=== PATIENT | male | born 1945 | race Caucasian/White ===

== ENCOUNTER 2021-02-19 06:35 | Observation (INO) ==
[2021-02-19] MEDS ORDERED: OPTIRAY 320 125ml IV ONE (06:54)
--- NOTE | 2021-02-19 06:55 | Emergency Department Note ---
History of Present Illness General Chief complaint: Stroke/CVA Symptoms Stated complaint: STROKE SYS Time Seen by Provider: 02/19/21 06:50 Source: patient and family History of Present Illness Provider complaint: Right-sided weakness Onset (ago): hour(s) Location: upper extremity and right Radiation: non-radiation Severity: severe Pain Consistency: + now resolved Quality: + other (Could not left arm) Relieved By: + none Associated symptoms: + weakness; no chest pain, no cough, no fever/chills, no headaches, no nausea/vomiting or no shortness of breath This is a 75-year-old male who weighed 6 up today at 5:30 AM with strokelike symptoms. He states that his right arm was resting on his abdomen and he could not lift it. He states he went to bed midnight and he had no symptoms. His also notes that he had slurring of the speech. He states that he had difficulty finding words as well. He states that his symptoms are significantly improving at this time. He had no symptoms in his legs. He denies any headache, fever, head trauma, vomiting, chest pain, shortness of breath, cough or cold symptoms, abdominal pain, diarrhea or urinary symptoms. He has never had a stroke before. His gave him 2 baby aspirin prior to arrival. He has a history of high blood pressure but no other medical problems. His symptoms are significantly improved but he still has some difficulty with strength in the right arm as well as some slurred speech according to his . Home Medications Medication Instructions Recorded Confirmed Type aspirin 81 mg tablet,delayed 162 mg PO ONCE 02/19/21 02/19/21 History release atenolol 25 mg tablet 12.5 mg PO HS 02/19/21 02/19/21 History doxazosin 1 mg tablet (Cardura) 0.5 mg PO HS 02/19/21 02/19/21 History terbinafine HCl 250 mg tablet 250 mg PO QDD 02/19/21 02/19/21 History Allergies Allergy/AdvReac Type Severity Reaction Status Date / Time No Known Drug Allergies Allergy Unknown . Verified 07/14/15 09:56 Past Med/Surg History Medical History (Updated 02/19/21 @ 09:30 by Amador Alonzo) Asymptomatic LV dysfunction follows with cardiology in [place], [place]; etiology? BPH (benign prostatic hyperplasia) Hypertension TIA (transient ischemic attack) ~2008 Surgical History (Updated 02/19/21 @ 08:46 by Amador Alonzo) H/O left knee surgery arthroscopy H/O shoulder surgery right Family History (Updated 02/19/21 @ 08:48 by Amador Alonzo) Uncle Stroke paternal Mother Dementia CHF (congestive heart failure) Father Prostate cancer with mets Social History (Updated 02/19/21 @ 08:50 by Amador Alonzo) Smoking Status: Former smoker packs per day: 2; Years Smoked: 15; Smoking End Date: 1979; Hx Alcohol Use: No Preferred Language: Faroese marital status: Current Living Situation: Spouse Current Living Situation Comment: lives with in [place], [place] current occupational status: retired current occupation: worked in [employer] in [employer] Feels Safe at Home: Yes Review of Systems See HPI for pertinent positives & negatives. and A total of 10 systems reviewed and were otherwise negative Physical Exam Vital Signs Vital Signs - 24 hr 02/19/21 06:38 02/19/21 07:30 02/19/21 08:00 Temperature 36.3 C L Temperature Source Temporal Artery Scan Pulse Rate 58 L 60 58 L Pulse Rate from SpO2 Sensor 59 L Respiratory Rate 18 18 14 Respiratory Effort / Characteristics Non-Labored Respiratory Depth Normal Respiratory Pattern Regular Blood Pressure 158/96 H 142/91 H 137/86 Blood Pressure Mean 116 108 103 Pulse Oximetry 96 95 93 Oxygen Delivery Method Room Air Sepsis Recent Fever Within 48 Hours No Sepsis New/Unexplained Change in Mental Status No Sepsis Action Taken by Nursing No Action Required 02/19/21 09:01 Temperature Temperature Source Pulse Rate 59 L Pulse Rate from SpO2 Sensor 60 Respiratory Rate 13 Respiratory Effort / Characteristics Respiratory Depth Respiratory Pattern Blood Pressure 127/82 Blood Pressure Mean 97 Pulse Oximetry 95 Oxygen Delivery Method Sepsis Recent Fever Within 48 Hours Sepsis New/Unexplained Change in Mental Status Sepsis Action Taken by Nursing Constitutional: Vital signs reviewed. Eyes: Pupils are equal round reactive to light. Conjunctiva are noninjected. ENT: Pharynx is clear without erythema or exudate. Mucous membranes are moist. Neck supple without meningeal signs. Respiratory: Clear to auscultation bilaterally. Breath sounds are equal bilaterally. Cardiovascular: Regular rate and rhythm. No rubs or gallops. GI: Soft, nondistended and nontender. Bowel sounds are present. Musculoskeletal: No peripheral edema. No lower extremity tenderness. Integumentary: No cyanosis. or jaundice. Neurologic: The patient is awake and alert. Cranial nerves II-XII are intact. Motor is 5 out of 5 all extremities, except the right upper extremity which demonstrates some mild weakness compared to the left. Sensation is intact to light touch all extremities. Normal speech. No pronator drift. No limb ataxia. Psychiatric: Normal affect. Not anxious appearing. Course Administered Medications Discontinued Medications Aspirin (Aspirin 81 Mg Chew) 162 mg PO NOW STA Stop: 02/19/21 07:26 Last Admin: 02/19/21 08:01 Dose: 162 mg Documented by: [id number] Magnesium Sulfate/Dextrose (Magnesium Sulfate / D5w) 1 gm in 100 mls @ 100 mls/hr IV NOW STA Stop: 02/19/21 09:10 Last Infusion: 02/19/21 09:25 Dose: 0 mls/hr Documented by: [id number] Admin: 02/19/21 08:25 Dose: 100 mls/hr Documented by: [id number] Ioversol (Optiray 320 125ml) 120 ml IV ONCE ONE Stop: 02/19/21 06:55 Last Admin: 02/19/21 06:54 Dose: 120 ml Documented by: [id number] Medical Decision Making Differential Diagnosis TIA, CVA, intracranial mass, intracranial hemorrhage, metabolic derangement Medical Records Attestation: I reviewed the patient's medical records. I did perform a limited focused review of portions of the patient's old chart on the electronic medical record. The patient has had no prior visits to this hospital. Home Medications Current Medication List: was personally reviewed by me Laboratory Data Attestation: I reviewed the patient's lab results. Result diagrams: 02/19/21 06:45 02/19/21 06:45 Lab Results 02/19/21 02/19/21 02/19/21 Range/Units 06:45 06:45 06:45 WBC 5.72 (4.8-10.8) K/uL RBC 4.35 L (4.7-6.1) M/uL Hgb 12.2 L (14.0-18.0) g/dL Hct 37.2 L (42-52) % MCV 85.5 (80-100) fL MCH 28.0 (25-34) pg MCHC 32.8 (32-36) g/dL RDW Std Deviation 46.3 (36.4-46.3) fL RDW Coeff of Manda 14.9 H (11.5-14.5) % Plt Count 210 (130-400) K/uL MPV 10.3 (7.4-10.4) fL Immature Gran % (Auto) 0.2 % Neut % (Auto) 45.1 % Lymph % (Auto) 39.9 % [place] % (Auto) 11.2 % Eos % (Auto) 3.3 % Baso % (Auto) 0.3 % Neut # (Auto) 2.58 (1.4-6.5) K/uL Lymph # (Auto) 2.28 (1.2-3.4) K/uL [place] # (Auto) 0.64 H (0.11-0.59) K/uL Eos # (Auto) 0.19 (0-0.5) K/uL Baso # (Auto) 0.02 (0-0.2) K/uL Immature Gran # (Auto) 0.01 (0.00-0.02) K/uL PT 9.9 (9.0-12.0) Seconds INR 1.0 (0.9-1.1) APTT 24.3 (21.0-31.0) Seconds PTT Ratio 0.9 Sodium 141 (136-145) mmol/L Potassium 4.1 (3.5-5.1) mmol/L Chloride 110 H (98-107) mmol/L Carbon Dioxide 27 (21-32) mmol/L Anion Gap 4.0 (3-11) BUN 17 (7-18) mg/dl Creatinine 0.94 (0.6-1.4) mg/dl Est Cr Clr Drug Dosing 83.0 ml/min Est GFR ( Amer) 92.9 ml/min Est GFR (Non-Af Amer) 80.1 ml/min BUN/Creatinine Ratio 17.7 (10-20) Glucose 87 (70-99) mg/dl Calcium 8.5 (8.5-10.1) mg/dl Magnesium 1.7 L (1.8-2.4) mg/dl Total Bilirubin 0.5 (0.2-1) mg/dl AST 34 (15-37) U/L ALT 42 (12-78) U/L Alkaline Phosphatase 58 (45-117) U/L Troponin I < 0.015 (0-0.045) ng/ml Total Protein 7.3 (6.4-8.2) gm/dl Albumin 3.7 (3.4-5.0) gm/dl Globulin 3.6 (2.5-4.0) gm/dl Albumin/Globulin Ratio 1.0 (0.9-2) COVID-19 Eval Order SARS-CoV-2 (PCR) (Negative) Blood Type Antibody Screen 02/19/21 02/19/21 02/19/21 Range/Units 07:03 07:30 07:30 WBC (4.8-10.8) K/uL RBC (4.7-6.1) M/uL Hgb (14.0-18.0) g/dL Hct (42-52) % MCV (80-100) fL MCH (25-34) pg MCHC (32-36) g/dL RDW Std Deviation (36.4-46.3) fL RDW Coeff of Manda (11.5-14.5) % Plt Count (130-400) K/uL MPV (7.4-10.4) fL Immature Gran % (Auto) % Neut % (Auto) % Lymph % (Auto) % [place] % (Auto) % Eos % (Auto) % Baso % (Auto) % Neut # (Auto) (1.4-6.5) K/uL Lymph # (Auto) (1.2-3.4) K/uL [place] # (Auto) (0.11-0.59) K/uL Eos # (Auto) (0-0.5) K/uL Baso # (Auto) (0-0.2) K/uL Immature Gran # (Auto) (0.00-0.02) K/uL PT (9.0-12.0) Seconds INR (0.9-1.1) APTT (21.0-31.0) Seconds PTT Ratio Sodium (136-145) mmol/L Potassium (3.5-5.1) mmol/L Chloride (98-107) mmol/L Carbon Dioxide (21-32) mmol/L Anion Gap (3-11) BUN (7-18) mg/dl Creatinine (0.6-1.4) mg/dl Est Cr Clr Drug Dosing ml/min Est GFR ( Amer) ml/min Est GFR (Non-Af Amer) ml/min BUN/Creatinine Ratio (10-20) Glucose (70-99) mg/dl Calcium (8.5-10.1) mg/dl Magnesium (1.8-2.4) mg/dl Total Bilirubin (0.2-1) mg/dl AST (15-37) U/L ALT (12-78) U/L Alkaline Phosphatase (45-117) U/L Troponin I (0-0.045) ng/ml Total Protein (6.4-8.2) gm/dl Albumin (3.4-5.0) gm/dl Globulin (2.5-4.0) gm/dl Albumin/Globulin Ratio (0.9-2) COVID-19 Eval Order Covid19 at [facility] SARS-CoV-2 (PCR) NEGATIVE (Negative) Blood Type AB Positive Antibody Screen NEGATIVE Imaging Data Radiologist's Impression: Head CT 02/19/21 06:50 CT head/brain wo con CLINICAL HISTORY: right weakness slurred speech COMPARISON STUDY: No previous studies for comparison. TECHNIQUE: Axial CT of the brain is performed from the vertex to the skull base. IV contrast was not administered for this examination. A dose lowering technique was utilized adhering to the principles of ALARA. CT DOSE: FINDINGS: No intra or extra-axial mass lesions are visualized. There is no CT evidence of acute cortical infarction. There is no evidence of midline shift. There is no acute hemorrhage. No acute depressed calvarial fractures are visualized. There are patchy white matter hypodensities likely on a small vessel basis. Lacunar infarct is seen within the right cerebellar lobe. There is no evidence of pathologic ventricular dilatation. There is no evidence of acute sinusitis. Subcutaneous hypoattenuating prominence of the left frontal scalp likely represents lipoma. IMPRESSION: 1. No acute intracranial hemorrhage, no midline shift or space occupying lesions. 2. Chronic small vessel ischemia. Lacunar infarct within the right cerebellar lobe. ACT 112: Negative or not required by law. The above report was generated using voice recognition software. It may contain grammatical, syntax or spelling errors. Electronically signed by: Any Hugo DO 02/19/2021 7:11 AM Head CTA 02/19/21 06:50 CT angio head w con CLINICAL HISTORY: Stroke Like Symptoms TECHNIQUE: CT angiography of the head was performed in a dynamic helical fashion during intravenous administration of 120 cc of Optiray. MIP imaging was performed. A dose lowering technique was utilized adhering to the principles of ALARA. CT DOSE: 1246.92 mGy.cm COMPARISON STUDY: No previous studies for comparison. FINDINGS: Distal aspect of right and left internal carotid arteries are normally opacified. Bilateral anterior cerebral arteries and anterior communicating arteries are normally opacified. V4 segment of the right vertebral artery is diffusely narrowed. 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 Right and left posterior cerebral artery are normally opacified. Hypoplastic left posterior communicating artery is seen likely representing developmental variant. No evidence of focal occlusion, aneurysmal dilatation or dissection is seen. IMPRESSION: 1. No evidence of focal occlusion, aneurysmal dilatation or dissection. 2. Diffuse narrowing of the V4 segment of the right vertebral artery which most likely represent developmental variant. 3. Fenestration of the basilar artery, developmental variant. ACT 112: Negative or not required by law. The above report was generated using voice recognition software. It may contain grammatical, syntax or spelling errors. Electronically signed by: Any Hugo DO 02/19/2021 7:19 AM Neck CTA 02/19/21 06:50 NECK CTA HISTORY: Right-sided weakness. Slurred speech. Stroke Like Symptoms TECHNIQUE: Multiaxial CT images of the neck were performed following the intravenous administration of contrast to evaluate the major cervical vessels. Maximum intensity projection images were also obtained. All measurements were calculated based on NASCET criteria. A dose lowering technique was utilized adhering to the principles of ALARA. COMPARISON STUDY: None. FINDINGS: The aortic arch and proximal great vessels are widely patent. There i s no significant stenosis, occlusion, or dissection identified within the bilateral common carotid, internal carotid, or vertebral arteries. Hypoplastic right vertebral artery. IMPRESSION: No significant stenosis, occlusion, or dissection identified within the carotid or vertebral arteries. ACT 112: Negative or not required by law. Electronically signed by: Oneil Tom M.D. 02/19/2021 7:17 AM ECG Data Attestation: I personally reviewed and interpreted this ECG as follows: Indication: + other (Stroke symptoms) Rhythm: + normal sinus ECG [place]: + Normal ECG ST segments: + Nonspecific ST abnormalities ECG Findings: no PVCs Comparison ECG Date: no prior available MDM Narrative I did evaluate the patient as noted above. Patient is presenting with right- sided paresis of the upper extremities starting at 5:30 AM this morning. He woke up with symptoms and his last known well was midnight. He is therefore not an IV TPA candidate. His symptoms are also improving significantly and he has minimal weakness on the right side. His also noted slurring of his speech which is significantly improved and he also complained of word finding difficulty. He currently has no signs of slurring of speech or aphasia but his states his speech is not completely normal. I did call a stroke alert. I did discuss case with Dr. Leija at [facility] stroke neurology. He agreed that IV TPA was not indicated. IV access was established. I did place an order for continuous cardiac monitoring. The monitor showed normal sinus rhythm at a rate of 60 bpm. I did order and personally review the patient's 12-lead EKG as described above. He has some nonspecific changes on twelve-lead EKG with sinus bradycardia. No old EKGs available. He denies having any chest discomfort or shortness of breath or symptoms consistent with ACS. I did order and review the patient's blood work as noted in the electronic medical record. He has a mild anemia with a hemoglobin 12.2. Platelets and WBC count are unremarkable. Electrolytes and LFTs and troponin are also unremarkable other than a magnesium of 1.7. I did order a CT of the head and CT angiogram of the head neck. I did review the images myself as well as the radiology report as described above. He has no evidence of acute stroke or acute intracranial findings. Angiogram is unremarkable other than developmental anomalies. I did reassess the patient. He still feels a little weakness in the right arm. His did give him 2 baby aspirin prior to arrival. I did treat him with another 2 baby aspirin here. I did recommend hospitalization for further care evaluation and MRI of the brain. I did discuss case with the hospitalist and embedded case manager. Impression & Plan Acute cerebrovascular accident (CVA), Right arm weakness Discharge Plan Visit Data Chief Complaint: Stroke/CVA Symptoms Stated Complaint: STROKE SYS ED Provider: David Pelayo Discharge Problem: Acute cerebrovascular accident (CVA), Right arm weakness Patient Disposition: Being Evaluated by Hospitalist
[2021-02-19 07:04] LABS: Basophils # (auto) 0.02 K/uL (0-0.2); Basophils % (auto) 0.3 %; Eosinophils # (auto) 0.19 K/uL (0-0.5); Eosinophils % (auto) 3.3 %; Hematocrit (blood only) 37.2 % (42-52); Hemoglobin 12.2 g/dL (14.0-18.0); Immature Granulocytes # (auto) 0.01 K/uL (0.00-0.02); Immature Granulocytes % (auto) 0.2 %; Lymphocytes # (auto) 2.28 K/uL (1.2-3.4); Lymphocytes % (auto) 39.9 %; Mean Corpuscular Hgb Conc 32.8 g/dL (32-36); Mean Corpuscular Volume 85.5 fL (80-100); Mean Platelet Volume 10.3 fL (7.4-10.4); Monocytes # (auto) 0.64 K/uL (0.11-0.59); Monocytes % (auto) 11.2 %; Neutrophils # (auto) 2.58 K/uL (1.4-6.5); Neutrophils % (auto) 45.1 %; Platelet Count 210 K/uL (130-400); RDW Coefficient of Variation 14.9 % (11.5-14.5); RDW Standard Deviation 46.3 fL (36.4-46.3); Red Blood Count 4.35 M/uL (4.7-6.1); White Blood Count 5.72 K/uL (4.8-10.8)
--- NOTE | 2021-02-19 07:12 | CT Scan Report ---
CT head/brain wo con CLINICAL HISTORY: right weakness slurred speech COMPARISON STUDY: No previous studies for comparison. TECHNIQUE: Axial CT of the brain is performed from the vertex to the skull base. IV contrast was not administered for this examination. A dose lowering technique was utilized adhering to the principles of ALARA. CT DOSE: FINDINGS: No intra or extra-axial mass lesions are visualized. There is no CT evidence of acute cortical infarc tion. There is no evidence of midline shift. There is no acute hemorrhage. No acute depressed calvar ial fractures are visualized. There are patchy white matter hypodensities likely on a small vessel basis. Lacunar infarct is seen within the right cerebellar lobe. There is no evidence of pathologic ventricular dilatation. There is no evidence of acute sinusitis. Subcutaneous hypoattenuating prominence of the left frontal scalp likely represents lipoma. IMPRESSION: 1. No acute intracranial hemorrhage, no midline shift or space occupying lesions. 2. Chronic small vessel ischemia. Lacunar infarct within the right cerebellar lobe. ACT 112: Negative or not required by law. The above report was generated using voice recognition software. It may contain grammatical, syntax o r spelling errors. Electronically signed by: Any Hugo DO 02/19/2021 7:11 AM
--- NOTE | 2021-02-19 07:18 | CT Scan Report ---
NECK CTA HISTORY: Right-sided weakness. Slurred speech. Stroke Like Symptoms TECHNIQUE: Multiaxial CT images of the neck were performed following the intravenous administration o f contrast to evaluate the major cervical vessels. Maximum intensity projection images were also obta ined. All measurements were calculated based on NASCET criteria. A dose lowering technique was utili zed adhering to the principles of ALARA. COMPARISON STUDY: None. FINDINGS: The aortic arch and proximal great vessels are widely patent. There is no significant sten osis, occlusion, or dissection identified within the bilateral common carotid, internal carotid, or v ertebral arteries. Hypoplastic right vertebral artery. IMPRESSION: No significant stenosis, occlusion, or dissection identified within the carotid or vertebral arteries . ACT 112: Negative or not required by law. Electronically signed by: Oneil Tom M.D. 02/19/2021 7:17 AM
--- NOTE | 2021-02-19 07:20 | CT Scan Report ---
CT angio head w con CLINICAL HISTORY: Stroke Like Symptoms TECHNIQUE: CT angiography of the head was performed in a dynamic helical fashion during intravenous a dministration of 120 cc of Optiray. MIP imaging was performed. A dose lowering technique was utilized adhering to the principles of ALARA. CT DOSE: 1246.92 mGy.cm COMPARISON STUDY: No previous studies for comparison. FINDINGS: Distal aspect of right and left internal carotid arteries are normally opacified. Bilateral anterior cerebral arteries and anterior communicating arteries are normally opacified. V4 segment of the right vertebral artery is diffusely narrowed. 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 Right and left posterior cerebral artery are normally opacified. Hypoplastic left posterior communica ting artery is seen likely representing developmental variant. No evidence of focal occlusion, aneurysmal dilatation or dissection is seen. IMPRESSION: 1. No evidence of focal occlusion, aneurysmal dilatation or dissection. 2. Diffuse narrowing of the V4 segment of the right vertebral artery which most likely represent dev elopmental variant. 3. Fenestration of the basilar artery, developmental variant. ACT 112: Negative or not required by law. The above report was generated using voice recognition software. It may contain grammatical, syntax o r spelling errors. Electronically signed by: Any Hugo DO 02/19/2021 7:19 AM
[2021-02-19 07:22] LABS: Alanine Aminotransferase 42 U/L (12-78); Albumin Level 3.7 gm/dl (3.4-5.0); Aspartate Aminotransferase 34 U/L (15-37); BUN Creatinine Ratio 17.7 (10-20); Blood Urea Nitrogen 17 mg/dl (7-18); Calcium 8.5 mg/dl (8.5-10.1); Carbon Dioxide 27 mmol/L (21-32); Chloride 110 mmol/L (98-107); Est GFR (African American) 92.9 ml/min; Est GFR (Non-African American) 80.1 ml/min; Glucose 87 mg/dl (70-99); Magnesium 1.7 mg/dl (1.8-2.4); Potassium 4.1 mmol/L (3.5-5.1); Sodium 141 mmol/L (136-145)
[2021-02-19] MEDS ORDERED: ASPIRIN 81 MG CHEW PO STA (07:25)
[2021-02-19 07:26] LABS: Alkaline Phosphatase 58 U/L (45-117); Bilirubin,Total 0.5 mg/dl (0.2-1); Globulin 3.6 gm/dl (2.5-4.0); Total Protein 7.3 gm/dl (6.4-8.2); Troponin I < 0.015 ng/ml (0-0.045)
[2021-02-19 07:27] LABS: Partial Thromboplastin Ratio 0.9; Partial Thromboplastin Time 24.3 Seconds (21.0-31.0); Prothrombin Time 9.9 Seconds (9.0-12.0)
[2021-02-19] MEDS ORDERED: MAGNESIUM SULFATE / D5W 1 GM/100 ML BAG IV STA (08:11)
--- NOTE | 2021-02-19 08:12 | History & Physical Report ---
Date of Service February 19, 2021 Assessment & Plan (1) Right arm weakness: Plan: Dysarthria, right arm weakness, and minimal right leg weakness at presentation. At minimum is a TIA event. Cannot rule out stroke event. Either way patient's symptoms are already improving and motor exam is near- normal during my admission assessment. Risk factors for TIA or stroke event -- prior TIA, HTN, and CT head does show a chronic lacunar infarct in the right cerebellum (perhaps that was actually his TIA event 13 years ago?). See #2 below. (2) TIA (transient ischemic attack): Plan: Presentation c/w with TIA vs stroke. Location - left brainstem? Will admit to telemetry, perform MRI brain, obtain echo, continue aspirin 81mg daily for secondary prevention, dysphagia screen, PT/OT/speech, and neuro consultation. Check lipids and HbA1C in am. (3) BPH (benign prostatic hyperplasia): Plan: Hold alpha anne-marie in order to allow permissiveness in blood pressures. No LUTS at this time. (4) Asymptomatic LV dysfunction: Plan: Follows with a medicare specialist in [place]. At one point his EF was ~40-50. Apparently his LV function has recovered but patient is uncertain of current EF. Vjya-gid-amrh check echo. He has no signs of CHF at this time. (5) Hypertension: Plan: Hold doxazosin. Hold atenolol. (6) Hypomagnesemia: Plan: Mag sulfate 1gm IV x 1. Repeat mag level am. (7) Anemia: Plan: Hb 12 at presentation today. MCV 85. Check iron studies, B12, and folate in am. Check fecal occult blood. Will need f/u for this post-d/c. (8) DVT prophylaxis: Plan: add lovenox 40mg daily Plan: extensively updated at bedside place in observation status History of Present Illness Chief Complaint: right arm weakness, slurred speech Primary Care Provider: NATTY PERRY 75yo male with HTN who presents with slurred speech and right arm weakness/flaccidness starting 0530 when he awoke from sleep. Right leg felt "rubbery" but was able to ambulate. gave him 2 baby aspirins for total of 162mg. He typically does not take aspirin. On the way to the hospital his speech was still slurred. Throughout his ER visit the speech started to improve, perhaps an hour after arrival. Right arm weakness has improved during the ER stay, but not back to 100% baseline. In the ER he walked to the bathroom once and right leg felt ok. No dysphagia (took a few sips of water without difficulty). No left-sided weakness. No vertigo. No visual change. No ataxia. Had TIA event 13 years ago. He was traveling at that time and felt "wobbly"/"I couldn't get my direction." He felt like he was going to fall. Took aspirin and went back to bed. When he awoke in the am the next day his symptoms had resolved. He had w/u for the TIA event about 1 week following the symptoms - nothing was found. He did not take anti-platelet agents following that event. [facility] and have been in [facility] since 2 days ago. No h/o COVID illness. Has had COVID vaccination. Allergies Allergy/AdvReac Type Severity Reaction Status Date / Time No Known Drug Allergies Allergy Unknown . Verified 07/14/15 09:56 Home Medications Medication Instructions Recorded Confirmed Type aspirin 81 mg tablet,delayed 162 mg PO ONCE 02/19/21 02/19/21 History release atenolol 25 mg tablet 12.5 mg PO HS 02/19/21 02/19/21 History doxazosin 1 mg tablet (Cardura) 0.5 mg PO HS 02/19/21 02/19/21 History terbinafine HCl 250 mg tablet 250 mg PO QDD 02/19/21 02/19/21 History Past Med/Surg History Medical History (Updated 02/19/21 @ 09:30 by Amador Alonzo) Asymptomatic LV dysfunction follows with cardiology in [place], [place]; etiology? BPH (benign prostatic hyperplasia) Hypertension TIA (transient ischemic attack) ~2008 Surgical History (Updated 02/19/21 @ 08:46 by Amador Alonzo) H/O left knee surgery arthroscopy H/O shoulder surgery right Family History (Updated 02/19/21 @ 08:48 by Amador Alonzo) Uncle Stroke paternal Mother Dementia CHF (congestive heart failure) Father Prostate cancer with mets Social History (Updated 02/19/21 @ 08:50 by Amador Alonzo) Smoking Status: Never smoker packs per day: 2; Years Smoked: 15; Smoking End Date: 1979; Second Hand Exposure: No; Do You Dip or Chew Tobacco: No; Tobacco Cessation Education Requested by Patient: No Hx Alcohol Use: No Hx Substance Use: No Preferred Language: Romanian Communication Ability: Effective Roll Cleaner Required: No Beliefs That Will Affect Care: None marital status: Current Living Situation: Spouse Current Living Situation Comment: lives with in [place], [place] current occupational status: retired current occupation: worked in [employer] in [employer] Other Information That Helps Us Care for You: No Feels Safe at Home: Yes Safety Concerns: Feels Safe At This Time Assistive Devices: None Review of Systems Constitutional: no fever, no chills, no fatigue, no anorexia and no weight loss Eyes: no worsening vision Ear, Nose, Mouth, Throat: no nasal congestion, no sore throat and no dysphagia Respiratory: no cough, no dyspnea and no dyspnea on exertion Cardiovascular: no chest pain, no palpitations and no edema Gastrointestinal: + abdominal pain (2 days ago - around umbilicus; pressure sensation; eating did not make worse; now resolved); no nausea, no vomiting, no diarrhea/loose stools and no blood in stools Genitourinary: no dysuria or no difficulty urinating Musculoskeletal: no joint pain Integumentary: no rash Neurologic: as per Subjective / HPI and + localized weakness; no gait abnormality and no headache(s) Psychiatric: no depression Endocrine: no diabetes Hematologic / Lymphatic: no easy bleeding and no easy bruising Physical Exam Constitutional: well developed and well nourished; no acute distress and no altered mental status Eyes: normal visual clark by confrontation, PERRL and EOM intact bilaterally ENMT: external ear and nose normal, oropharynx normal Ears: no TM abnormality Neck: trachea midline, no thyromegaly Respiratory: normal respiratory effort, lungs clear to auscultation Cardiovascular: Rate/Rhythm: regular rate (with extra beats) and regular rhythm Heart Sounds: normal S1 and normal S2; no murmur Vessels: posterior tibial pulses present and dorsalis pedis pulses present; no JVD Extremities: no edema Gastrointestinal (Abdomen): normal bowel sounds, soft, nontender, no hepatosplenomegaly (small lipoma LUQ?? - freely movable ) Musculoskeletal: Extremities: no clubbing Skin: no rashes, warm and dry Neurologic: CN 3-12 intact except ? scant right lower facial droop; no pronator drift; negative babinski's; sensory intact to light touch x 4 exts; no ataxia finger/nose/finger maneuver; DTRs 2+ b/l upper /lower extremities. strength - 4-5/5 strength RUE, all other limbs 5/5. speech fluent/clear; gait not tested. Psychiatric: A+Ox3, euthymic affect Lymphatic: no cervical lymphadenopathy Results & Data Results & Data ([facility]) Vital Signs (Past 12 Hours) Vital Signs Temp Pulse Resp BP Pulse Ox 02/19/21 07:30 60 18 142/91 H 95 02/19/21 06:38 36.3 C L 58 L 18 158/96 H 96 Laboratory Results Laboratory Results - last 24 hr 02/19/21 02/19/21 02/19/21 06:45 06:45 06:45 WBC 5.72 RBC 4.35 L Hgb 12.2 L Hct 37.2 L MCV 85.5 MCH 28.0 MCHC 32.8 RDW Std Deviation 46.3 RDW Coeff of Manda 14.9 H Plt Count 210 MPV 10.3 Immature Gran % (Auto) 0.2 Neut % (Auto) 45.1 Lymph % (Auto) 39.9 [place] % (Auto) 11.2 Eos % (Auto) 3.3 Baso % (Auto) 0.3 Neut # (Auto) 2.58 Lymph # (Auto) 2.28 [place] # (Auto) 0.64 H Eos # (Auto) 0.19 Baso # (Auto) 0.02 Immature Gran # (Auto) 0.01 PT 9.9 INR 1.0 APTT 24.3 PTT Ratio 0.9 Sodium 141 Potassium 4.1 Chloride 110 H Carbon Dioxide 27 Anion Gap 4.0 BUN 17 Creatinine 0.94 Est Cr Clr Drug Dosing 83.0 Est GFR ( Amer) 92.9 Est GFR (Non-Af Amer) 80.1 BUN/Creatinine Ratio 17.7 Glucose 87 Calcium 8.5 Magnesium 1.7 L Total Bilirubin 0.5 AST 34 ALT 42 Alkaline Phosphatase 58 Troponin I < 0.015 Total Protein 7.3 Albumin 3.7 Globulin 3.6 Albumin/Globulin Ratio 1.0 COVID-19 Eval Order SARS-CoV-2 (PCR) Blood Type Antibody Screen 02/19/21 02/19/21 02/19/21 07:03 07:30 07:30 WBC RBC Hgb Hct MCV MCH MCHC RDW Std Deviation RDW Coeff of Manda Plt Count MPV Immature Gran % (Auto) Neut % (Auto) Lymph % (Auto) [place] % (Auto) Eos % (Auto) Baso % (Auto) Neut # (Auto) Lymph # (Auto) [place] # (Auto) Eos # (Auto) Baso # (Auto) Immature Gran # (Auto) PT INR APTT PTT Ratio Sodium Potassium Chloride Carbon Dioxide Anion Gap BUN Creatinine Est Cr Clr Drug Dosing Est GFR ( Amer) Est GFR (Non-Af Amer) BUN/Creatinine Ratio Glucose Calcium Magnesium Total Bilirubin AST ALT Alkaline Phosphatase Troponin I Total Protein Albumin Globulin Albumin/Globulin Ratio COVID-19 Eval Order Covid19 at [facility] SARS-CoV-2 (PCR) NEGATIVE Blood Type AB Positive Antibody Screen NEGATIVE Diagnostic Findings Head CT 02/19/21 06:50 CT head/brain wo con CLINICAL HISTORY: right weakness slurred speech COMPARISON STUDY: No previous studies for comparison. TECHNIQUE: Axial CT of the brain is performed from the vertex to the skull base. IV contrast was not administered for this examination. A dose lowering technique was utilized adhering to the principles of ALARA. CT DOSE: FINDINGS: No intra or extra-axial mass lesions are visualized. There is no CT evidence of acute cortical infarction. There is no evidence of midline shift. There is no acute hemorrhage. No acute depressed calvarial fractures are visualized. There are patchy white matter hypodensities likely on a small vessel basis. Lacunar infarct is seen within the right cerebellar lobe. There is no evidence of pathologic ventricular dilatation. There is no evidence of acute sinusitis. Subcutaneous hypoattenuating prominence of the left frontal scalp likely represents lipoma. IMPRESSION: 1. No acute intracranial hemorrhage, no midline shift or space occupying lesions. 2. Chronic small vessel ischemia. Lacunar infarct within the right cerebellar lobe. ACT 112: Negative or not required by law. The above report was generated using voice recognition software. It may contain grammatical, syntax or spelling errors. Electronically signed by: Any Hugo DO 02/19/2021 7:11 AM Head CTA 02/19/21 06:50 CT angio head w con CLINICAL HISTORY: Stroke Like Symptoms TECHNIQUE: CT angiography of the head was performed in a dynamic helical fashion during intravenous administration of 120 cc of Optiray. MIP imaging was performed. A dose lowering technique was utilized adhering to the principles of ALARA. CT DOSE: 1246.92 mGy.cm COMPARISON STUDY: No previous studies for comparison. FINDINGS: Distal aspect of right and left internal carotid arteries are normally opacified. Bilateral anterior cerebral arteries and anterior communicating arteries are normally opacified. V4 segment of the right vertebral artery is diffusely narrowed. 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 Right and left posterior cerebral artery are normally opacified. Hypoplastic left posterior communicating artery is seen likely representing developmental variant. No evidence of focal occlusion, aneurysmal dilatation or dissection is seen. IMPRESSION: 1. No evidence of focal occlusion, aneurysmal dilatation or dissection. 2. Diffuse narrowing of the V4 segment of the right vertebral artery which most likely represent developmental variant. 3. Fenestration of the basilar artery, developmental variant. ACT 112: Negative or not required by law. The above report was generated using voice recognition software. It may contain grammatical, syntax or spelling errors. Electronically signed by: Any Hugo DO 02/19/2021 7:19 AM Neck CTA 02/19/21 06:50 NECK CTA HISTORY: Right-sided weakness. Slurred speech. Stroke Like Symptoms TECHNIQUE: Multiaxial CT images of the neck were performed following the intravenous administration of contrast to evaluate the major cervical vessels. Maximum intensity projection images were also obtained. All measurements were calculated based on NASCET criteria. A dose lowering technique was utilized adhering to the principles of ALARA. COMPARISON STUDY: None. FINDINGS: The aortic arch and proximal great vessels are widely patent. There is no significant stenosis, occlusion, or dissection identified within the bilateral common carotid, internal carotid, or vertebral arteries. Hypoplastic right vertebral artery. IMPRESSION: No significant stenosis, occlusion, or dissection identified within the carotid or vertebral arteries. ACT 112: Negative or not required by law. Electronically signed by: Oneil Tom M.D. 02/19/2021 7:17 AM EKG - my reading - NSR, poor R wave progression, NS ST flattening limb leads and V2. Code Status & VTE Plan Code Status full code PG Care Time/CCT Total # of Minutes Spent Total Time Spent with Patient: Total time spent is greater than 50% in coordination of care (as documented) at patient's floor/unit and/or counseling patient: Coding Level of Care Code INT OBSERVATION CARE 70M LVL 3 Diagnoses TIA (transient ischemic attack) G45.9 BPH (benign prostatic hyperplasia) N40.0 Right arm weakness R29.898 Asymptomatic LV dysfunction I51.9 Hypertension I10 Hypomagnesemia E83.42 Anemia D64.9 DVT prophylaxis Z29.9
--- NOTE | 2021-02-19 13:23 | Electrocardiogram Report ---
Test Reason : Blood Pressure : / mmHG Vent. Rate : 062 BPM Atrial Rate : 062 BPM P-R Int : 170 ms QRS Dur : 104 ms QT Int : 432 ms P-R-T Axes : 078 014 037 degrees QTc Int : 438 ms Poor data quality, interpretation may be adversely affected Normal sinus rhythm Nonspecific ST and T wave abnormality Abnormal ECG When compared with ECG of 06-OCT-2009 10:52, No significant change was found Confirmed by Michael Navarro ([id number]) on 02/19/2021 1:23:01 PM Referred By: REFERRED SELF Confirmed By:Doug Navarro
[2021-02-19] MEDS ORDERED: PHARMACIST DISCHARGE MED REC CONSULT PRN (17:18)
[2021-02-19] MEDS ORDERED: SODIUM CHLORIDE 0.9% 1000ML 1,000 ML IV SCH (17:18)
[2021-02-19] MEDS ORDERED: ONDANSETRON INJ 2 MG/ML 2 ML VIAL IV PRN (17:18)
[2021-02-19] MEDS ORDERED: NITROGLYCERIN SL 0.4 MG/TAB TAB SL PRN (17:18)
[2021-02-19] MEDS ORDERED: ACETAMINOPHEN 325 MG TAB PO PRN (17:18)
[2021-02-19] MEDS ORDERED: LORazepam 0.5 MG TAB PO STA (17:56)
[2021-02-19] MEDS ORDERED: LORazepam 0.5 MG TAB ONE (21:30)
[2021-02-20 06:39] LABS: Basophils # (auto) 0.01 K/uL (0-0.2); Basophils % (auto) 0.2 %; Eosinophils # (auto) 0.16 K/uL (0-0.5); Hematocrit (blood only) 36.8 % (42-52); Hemoglobin 12.2 g/dL (14.0-18.0); Immature Granulocytes # (auto) 0.01 K/uL (0.00-0.02); Immature Granulocytes % (auto) 0.2 %; Lymphocytes # (auto) 1.49 K/uL (1.2-3.4); Lymphocytes % (auto) 27.7 %; Mean Corpuscular Hemoglobin 28.2 pg (25-34); Mean Corpuscular Hgb Conc 33.2 g/dL (32-36); Mean Corpuscular Volume 85.2 fL (80-100); Mean Platelet Volume 10.2 fL (7.4-10.4); Monocytes # (auto) 0.55 K/uL (0.11-0.59); Monocytes % (auto) 10.2 %; Neutrophils # (auto) 3.15 K/uL (1.4-6.5); Neutrophils % (auto) 58.7 %; Platelet Count 201 K/uL (130-400); RDW Coefficient of Variation 14.9 % (11.5-14.5); RDW Standard Deviation 46.1 fL (36.4-46.3); Red Blood Count 4.32 M/uL (4.7-6.1); White Blood Count 5.37 K/uL (4.8-10.8)
[2021-02-20 07:02] LABS: BUN Creatinine Ratio 20.1 (10-20); Calcium 8.2 mg/dl (8.5-10.1); Creatinine Clr Calc Pharmacy 97.2 ml/min; Est GFR (African American) 103.2 ml/min; Est GFR (Non-African American) 89.1 ml/min; Magnesium 1.6 mg/dl (1.8-2.4); Potassium 3.9 mmol/L (3.5-5.1)
[2021-02-20 07:07] LABS: Ferritin 240.2 ng/ml (8-388)
[2021-02-20 07:17] LABS: Estimated Average Glucose 126 mg/dl
[2021-02-20 08:07] LABS: Folate (Folic Acid) > 20.00 ng/ml (>5.38); Vitamin B12 688 pg/ml (193-986)
[2021-02-20] MEDS ORDERED: ASPIRIN 81 MG ECTAB PO SCH (09:00)
[2021-02-20] MEDS ORDERED: ENOXAPARIN INJ 40 MG/0.4 ML SYR SQ SCH (09:00)
--- NOTE | 2021-02-20 09:00 | Magnetic Resonance Report ---
MRI OF THE BRAIN WITHOUT CONTRAST CLINICAL HISTORY: slurred speech, R arm weakness; r/o CVA COMPARISON STUDY: None. FINDINGS: Sagittal T1, axial diffusion, proton density and T2 weighted axial, coronal FLAIR, and axial T1-weigh joyce images were acquired. No intra or extra-axial mass lesions are visualized No acute intracranial hemorrhage. Curvilinear area of increased DWI and decreased ADC map signal is seen within left parietal subcortic al white matter which also shows increased T2 FLAIR signal and could represent acute or subacute isch emia/infarct. Focal area of increase DWI signal within right frontal white matter shows no evidence of decreased si gnal on a ADC map and show high T2 and increased T2 FLAIR signal likely representing old infarct. Mild atrophic changes of brain parenchyma are seen with slight ex vacuo dilatation of ventricles, mil d ventricular asymmetry with 3 mm midline shift to the left. No evidence of mass lesion or ventricula r obliteration that could cause mass effect and midline shift . Proton density T2-weighted and FLAIR images reveal scattered foci of increased T2 signal within the w wilson matter, likely on a small vessel basis. There are no abnormal flow voids. IMPRESSION: 1. Curvilinear area of restricted diffusion within left parietal lobe which could represent acute is chemia/infarct. Findings were discussed with Dr. Adam at the time of this dictation. 2. Mild atrophic changes of brain parenchyma associated with ex vacuo dilatation of ventricles and v entricular asymmetry. Questionable 3 mm midline shift to the left is seen without ventricular obliter ation or mass effect, could be related to asymmetrical ventricular dilatation or represent developmen kelly abnormality. There are no prior studies available to assess chronicity of this condition. Attenti on on follow-up imaging. Report will be sent to patient's unit. 3. Chronic small vessel ischemia. 4. No acute intracranial hemorrhage. ACT 112: Negative or not required by law. The above report was generated using voice recognition software. It may contain grammatical, syntax o r spelling errors. Electronically signed by: Any Hugo DO 02/20/2021 8:59 AM
--- NOTE | 2021-02-20 09:29 | Neurology Consultation ---
Date of Consultation February 20, 2021 Assessment & Plan (1) Acute cerebrovascular accident (CVA): (2) Right arm weakness: (3) Speech abnormality: (4) Hypertension: this patient has had an acute stroke on February 19. MRI shows a small left parietal lesion. He has old small vessel ischemic changes on MRI. This stroke was likely small vessel thrombosis in origin. He had temporary right upper extremity greater than right lower extremity weakness and some nonspecific speech issues all of which have resolved. He has no focal deficits, meningeal signs, or encephalopathy currently. Hypertension is his biggest risk factor for stroke and it was elevated on admission. Today blood pressure is normal. He has no history of diabetes, dyslipidemia, or cigarette smoking since 1979. Because of his scattered old small vessel ischemic changes and some history of heart disease, echocardiogram be obtained to look for source of embolus. Recommendations: 1. awaiting echocardiogram results. 2. 81 mg aspirin tablet daily. 3. control blood pressure as you are doing, aiming for a mean arterial pressure of 95-100. 4. he does not have a need for a statin based on his lipid parameters 5. Increase activity 6. Otherwise, I have no further neurologic testing or treatment recommendations to make at this time. Please contact me if I can be of further assistance. Overall, I spent a total of 60 minutes with this case including review of records, review of MRI films, direct evaluation of the patient at bedside, and discussion of case with the patient at bedside and Dr. Sandoval, including differential diagnosis and treatment options. History of Present Illness Reason for Consultation: patient is a 75-year-old, who I was asked to see at the request of Dr. Alonzo, for neurologic consultation regarding stroke Requesting Physician: Dr. Alonzo Attending Physician: Dave Kellogg History of Present Illness this patient has a history of hypertension for at least 4-5 years. 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 Patient has not been on any antiplatelet medication on a regular basis. In 2008 he woke up with weakness in the limbs and could not walk. This listed for short period of time and he was told that he probably had a "TIA". I do not have any details regarding this bilaterally symmetrical weakness event. Patient went to bed just before midnight on February 18. He was feeling well. He woke up at 5:30 a.m. on February 19 with weakness in the right arm greater than the right leg. He could not balance particularly well when he walked and he had slurred speech and word-finding difficulties. His gave him 281 mg aspirin tablets orally. He arrived to the emergency room on February 19 at 6:38 a.m. with a temperature of 36.3, pulse 58 regular, respiratory rate 18, blood pressure 158/96, and O2 saturation 96%. On exam he was noted to have some right upper extremity weakness but his speech was unremarkable. The patient believes that his weakness resolved by mid day on the . He has not had any episodes or symptoms since. CBC showed mild anemia and a Chem profile was unremarkable. CT scan of the head was unremarkable although there was an old right cerebellar lacune. CT angiography of the head and neck were unremarkable with no significant stenoses or vascular anomalies. There was a narrow V4 segment on the right which was likely congenital/ developmental. MRI of the brain showed a small left parietal stroke. There were some old small vessel ischemic changes of a nonspecific nature. I reviewed these films with the radiologist Dr. Hugo This morning the patient feels at baseline with no symptoms. He has no dizziness, headache, pain, weakness, numbness, vision issues, or confusion. Echocardiogram is pending. Hemoglobin A1c is 6.0. Triglycerides 46 and total cholesterol 163. He has been in normal sinus rhythm with occasional PACs overnight. Blood pressure is 133/89. Allergies Allergy/AdvReac Type Severity Reaction Status Date / Time No Known Drug Allergies Allergy Unknown . Verified 07/14/15 09:56 Home Medications Medication Instructions Recorded Confirmed Type aspirin 81 mg tablet,delayed 162 mg PO ONCE 02/19/21 02/19/21 History release atenolol 25 mg tablet 12.5 mg PO HS 02/19/21 02/19/21 History doxazosin 1 mg tablet (Cardura) 0.5 mg PO HS 02/19/21 02/19/21 History terbinafine HCl 250 mg tablet 250 mg PO QDD 02/19/21 02/19/21 History Patient History Medical History Asymptomatic LV dysfunction follows with cardiology in [place], [place]; etiology? BPH (benign prostatic hyperplasia) Hypertension TIA (transient ischemic attack) ~2009 Surgical History H/O left knee surgery arthroscopy H/O shoulder surgery right Family History Uncle Stroke paternal Mother Dementia CHF (congestive heart failure) Father Prostate cancer with mets Social History Smoking Status: Never smoker packs per day: 2; Years Smoked: 15; Smoking End Date: 1979; Second Hand Exposure: No; Do You Dip or Chew Tobacco: No; Tobacco Cessation Education Requested by Patient: No Hx Alcohol Use: No Hx Substance Use: No Preferred Language: Lao Communication Ability: Effective Handling Tech Required: No Beliefs That Will Affect Care: None marital status: Current Living Situation: Spouse Current Living Situation Comment: lives with in [place], [place] current occupational status: retired current occupation: worked in [email or web address] Other Information That Helps Us Care for You: No Feels Safe at Home: Yes Safety Concerns: Feels Safe At This Time Assistive Devices: None Review of Systems Constitutional: no fever, no fatigue and no weakness Eyes: no diplopia, no eye pain and no worsening vision Ear, Nose, Mouth, Throat: no ear pain, no tinnitus, no hearing loss, no dizziness, no hoarseness and no dysphagia Respiratory: no cough and no dyspnea Cardiovascular: no chest pain, no palpitations and no lightheadedness Gastrointestinal: no abdominal pain, no nausea and no vomiting Musculoskeletal: no back pain, no neck pain, no radicular pain, no joint pain and no myalgia Integumentary: no rash and no lesions Neurologic: no gait abnormality, no localized weakness, no generalized weakness, no tingling, no numbness, no tremor(s), no abnormal movements, no headache(s), no abnormal speech, no confusion and no memory loss Psychiatric: no depression, no irritability, no anxiety, no difficulty concentrating, no confusion and no hallucinations Endocrine: no fatigue and no flushing Hematologic / Lymphatic: no easy bleeding and no easy bruising Allergy / Immunological: no urticaria and no problem reported Exam (Neuro) Physical Exam: The patient is right-handed. The patient is awake, alert, and attentive. Speech is normal without any aphasia or dysarthria. The patient can name objects, repeat phrases, and has normal spontaneous speech. Mentation and thought processes are intact, with orientation to person, place and time, and normal fund of knowledge. Attention and concentration are normal. Mood and affect are normal and appropriate. General appearance and grooming are normal. Short and long-term memory are intact. Pupils are 4 mm bilaterally and reactive to light. Extraocular eye muscles are intact without nystagmus. Visual acuity and visual clark seem normal grossly to confrontation. There are no deficits to sensation in the face in all 3 distributions of the fifth cranial nerve bilaterally. Corneal reflexes are positive bilaterally. Facial strength and symmetry was normal bilaterally. Hearing seems normal bilaterally. Palate moves well without asymmetry. There is normal sternocleidomastoid and trapezius (shoulder shrug) strength bilaterally. Tongue is midline with good strength bilaterally. Neck has a full range of motion without discomfort. There are no cervical bruits bilaterally. There are no cranial or ocular bruits. Heart is without murmur. There is a regular rhythm and rate. Cervical, thoracic, and lumbar spine are nontender to palpation. Gait was not tested but stance sitting up in bed is normal With outstretched arms there is no drift. There are no resting, postural, or action tremors. There is no ataxia with finger to nose testing. There is good facility in the hands. No other abnormal involuntary movements are noted. Motor strength is 5/5 diffusely in the arms bilaterally including deltoids, biceps, triceps, brachioradialis, wrist flexors and extensors, ski lift attendant, and intrinsic hand muscles. Motor strength is 5/5 diffusely in the legs bilaterally including hip flexors, quadriceps, hamstrings, gastrocnemius, tibialis anterior, tibialis posterior, and Peroneii muscles. Toe extensors are normal and there is good bulk in the extensor digitorum brevis muscles bilaterally. The limbs have good tone without rigidity or spasticity. There is no atrophy noted in the muscles. Muscle bulk is normal, there is no tenderness to palpation, no myotonia to percussion, and no fasciculations seen. Sensory examination is intact to touch and pin throughout all 4 limbs diffusely. Reflexes are 1/4 in the biceps, triceps, brachioradialis, quadriceps, and Achilles tendons bilaterally. There is no clonus bilaterally. Toes are downgoing with plantar stimulation bilaterally. Peripheral pulses are present and of normal quality distally in all 4 limbs. There is no peripheral edema noted in the limbs. Results & Data ([facility]) Vital Signs (Past 12 Hours) Vital Signs Temp Pulse Pulse Resp BP Pulse Ox 02/20/21 07:30 36.7 C 61 20 133/89 93 02/20/21 04:35 36.5 C 62 16 151/97 H 94 02/20/21 00:36 61 02/19/21 23:35 36.8 C 58 L 18 146/95 H 93 PG Care Time/CCT Total # of Minutes Spent Total Time Spent with Patient: Total time spent is greater than 50% in coordination of care (as documented) at patient's floor/unit and/or counseling patient: Coding Level of Care Code 05539 Initial Inpt Care Lvl 3 Diagnoses Acute cerebrovascular accident (CVA) I63.9 Right arm weakness R29.898 Speech abnormality R47.9 Hypertension I10
--- NOTE | 2021-02-20 13:27 | Discharge Summary ---
Date of Service February 20, 2021 Admission HPI Per Admitting Provider 75yo male with HTN who presents with slurred speech and right arm weakness/flaccidness starting 0530 when he awoke from sleep. Right leg felt "rubbery" but was able to ambulate. gave him 2 baby aspirins for total of 162mg. He typically does not take aspirin. On the way to the hospital his speech was still slurred. Throughout his ER visit the speech started to improve, perhaps an hour after arrival. Right arm weakness has improved during the ER stay, but not back to 100% baseline. In the ER he walked to the bathroom once and right leg felt ok. No dysphagia (took a few sips of water without difficulty). No left-sided weakness. No vertigo. No visual change. No ataxia. Had TIA event 13 years ago. He was traveling at that time and felt "wobbly"/"I couldn't get my direction." He felt like he was going to fall. Took aspirin and went back to bed. When he awoke in the am the next day his symptoms had resolved. He had w/u for the TIA event about 1 week following the symptoms - nothing was found. He did not take anti-platelet agents following that event. [facility] and have been in [facility] since 2 days ago. No h/o COVID illness. Has had COVID vaccination. Admission Exam (Per Admitting) Constitutional Constitutional: well developed and well nourished; no acute distress and no altered mental status Eyes: normal visual clark by confrontation, PERRL and EOM intact bilaterally ENMT: external ear and nose normal, oropharynx normal Ears: no TM abnormality Neck: trachea midline, no thyromegaly Respiratory: normal respiratory effort, lungs clear to auscultation Cardiovascular: Rate/Rhythm: regular rate (with extra beats) and regular rhythm Heart Sounds: normal S1 and normal S2; no murmur Vessels: posterior tibial pulses present and dorsalis pedis pulses present; no JVD Extremities: no edema Gastrointestinal (Abdomen): normal bowel sounds, soft, nontender, no hepatosplenomegaly (small lipoma LUQ?? - freely movable ) Musculoskeletal: Extremities: no clubbing Skin: no rashes, warm and dry Neurologic: CN 3-12 intact except ? scant right lower facial droop; no pronator drift; negative babinski's; sensory intact to light touch x 4 exts; no ataxia finger/nose/finger maneuver; DTRs 2+ b/l upper /lower extremities. strength - 4-5/5 strength RUE, all other limbs 5/5. speech fluent/clear; gait not tested. Psychiatric: A+Ox3, euthymic affect Lymphatic: no cervical lymphadenopathy Specialty Data Cardiology Brain MRI 02/19/21 17:18 MRI OF THE BRAIN WITHOUT CONTRAST CLINICAL HISTORY: slurred speech, R arm weakness; r/o CVA COMPARISON STUDY: None. FINDINGS: Sagittal T1, axial diffusion, proton density and T2 weighted axial, coronal FLAIR, and axial T1-weighted images were acquired. No intra or extra-axial mass lesions are visualized No acute intracranial hemorrhage. Curvilinear area of increased DWI and decreased ADC map signal is seen within left parietal subcortical white matter which also shows increased T2 FLAIR si gnal and could represent acute or subacute ischemia/infarct. Focal area of increase DWI signal within right frontal white matter shows no evidence of decreased signal on a ADC map and show high T2 and increased T2 FLAIR signal likely representing old infarct. Mild atrophic changes of brain parenchyma are seen with slight ex vacuo dilatation of ventricles, mild ventricular asymmetry with 3 mm midline shift to the left. No evidence of mass lesion or ventricular obliteration that could cause mass effect and midline shift . Proton density T2-weighted and FLAIR images reveal scattered foci of increased T2 signal within the white matter, likely on a small vessel basis. There are no abnormal flow voids. IMPRESSION: 1. Curvilinear area of restricted diffusion within left parietal lobe which could represent acute ischemia/infarct. Findings were discussed with Dr. Adam at the time of this dictation. 2. Mild atrophic changes of brain parenchyma associated with ex vacuo dilatation of ventricles and ventricular asymmetry. Questionable 3 mm midline shift to the left is seen without ventricular obliteration or mass effect, could be related to asymmetrical ventricular dilatation or represent developmental abnormality. There are no prior studies available to assess chronicity of this condition. Attention on follow-up imaging. Report will be sent to patient's unit. 3. Chronic small vessel ischemia. 4. No acute intracranial hemorrhage. ACT 112: Negative or not required by law. The above report was generated using voice recognition software. It may contain grammatical, syntax or spelling errors. Electronically signed by: Any Hugo DO 02/20/2021 8:59 AM Discharge Data Consultations 02/19/21 08:38 ED Decision to Admit Stat 02/19/21 17:18 Consult Neurology Routine Hospital Course (1) Right arm weakness: Jakub is a 75-year-old male with a past medical history of hypertension and anemia who presented with acute right-sided weakness and he was found to have an acute left parietal CVA with resolution of his deficits during admission. To do as outpatient 1. Follow-up with PCP, continue aspirin therapy 2. Follow-up with PCP for hypertension recheck and management. Goal MAP per neurology [id number]. 3. Anemia follow-up, no signs of iron, B12, or folate deficiency or active bleeding during exam.Patient may benefit from outpatient colonoscopy, occult blood negative during admission. Discharge exam General: A&Ox3. NAD. Cooperative. HEENT: Atraumatic, normocephalic. Pulm: CTAB A&P. -wheezes, -rales, -rhonchi. Symmetrical chest rise. No increase work of breathing. No respiratory distress. Cardiac: RRR, -mrg. Radial pulses intact and symmetrical. Abdominal: Nontender, nondistended, soft. BS present. CRANIAL NERVES: II: Pupils equal and reactive, no relative afferent pupillary defect, no VF cuts III, IV, : EOM intact, no gaze preference or deviation, no nystagmus. V: normal sensation in V1, V2, and V3 segments bilaterally VII: no asymmetry, no nasolabial fold flattening VIII: normal hearing to speech IX, X: normal palatal elevation, no uvular deviation XI: 5/5 head turn and 5/5 shoulder shrug bilaterally XII: midline tongue protrusion MOTOR: RUE: 5/5 Shoulder internal rotation, external rotation, flexion, extension, abduction, adduction 5/5 Elbow flexion/extension, wrist flexion/extension 5/5 sheep clipper strength, finger flexion/extension, interosseus LUE: 5/5 Shoulder internal rotation, external rotation, flexion, extension, abduction, adduction 5/5 Elbow flexion/extension, wrist flexion/extension 5/5 sheep clipper strength, finger flexion/extension, interosseus RLE: 5/5 to hip flexion, knee flexion/extension, ankle dorsiflexion/plantarflexion LLE: 5/5 to hip flexion, knee flexion/extension, ankle dorsiflexion/plantarflexion COORD: Normal finger to nose and heel to bliss, no tremor, no dysmetria STATION: normal stance, no truncal ataxia GAIT: Normal Sensation to soft touch intact in feet and fingers bilaterally. Right arm weakness 2/2 left parietal CVA MRI: Curvilinear area of restricted diffusion within left parietal lobe which could represent acute ischemia/infarct. Findings were discussed with Dr. Adam at the time of this dictation. 2. Mild atrophic changes of brain parenchyma associated with ex vacuo dilatation of ventricles and ventricular asymmetry. Questionable 3 mm midline shift to the left is seen without ventricular obliteration or mass effect, could be related to asymmetrical ventricular dilatation or represent developmental abnormality. There are no prior studies available to assess chronicity of this condition. Attention on follow-up imaging. Report will be sent to patient's unit. 3. Chronic small vessel ischemia. 4. No acute intracranial hemorrhage. Continue aspirin 81 mg daily No statin recommended at this time, discussed with neurology All deficits resolved at time of discharge (2) BPH (benign prostatic hyperplasia): Alpha-anne-marie was held during admission, no lower urinary tract symptoms were experienced during admission (3) Asymptomatic LV dysfunction: Patient follows with cardiology in [place] for asymptomatic LV dysfunction. Reports past EF approximately 40 to 50%. Repeat TTE while inpatient showed preserved EF, no shunting, mild LA/RA dilation, RSVP 30-40. Discussed with pt who will followup with his cardiology group, hx of some fluid edema with no known lung disease. Patient was clinically euvolemic with no signs of CHF during admission. (4) Hypertension: Patient was normotensive during admission, antihypertensives were resumed on discharge. Recommended to follow-up with PCP, goal MAP [address] (5) Hypomagnesemia: Patient was hypomagnesemic, magnesium was repleted during admission (6) Anemia: Patient had a hemoglobin of 12 during admission with an MCV of 85 B12, folate levels were normal Iron 118, transferrin 251, transferrin saturation 33, ferritin 240 not suggestive of severe iron deficiency Fecal occult blood negative No active bleeding during admission Creatinine normal Recommend additional follow-up as outpatient and routine colon cancer screening as outpatient. Discussed with patient at time of discharge. (7) DVT prophylaxis: Patient was prophylaxed with Lovenox 40 during admission, no signs of DVT during admission Coding Level of Care Code D/C DAY MANAGEMENT >30 MINS Diagnoses Right arm weakness R29.898 BPH (benign prostatic hyperplasia) N40.0 Asymptomatic LV dysfunction I51.9 Hypertension I10 Hypomagnesemia E83.42 Anemia D64.9 DVT prophylaxis Z29.9
--- NOTE | 2021-02-20 13:47 | XCELERA ---
[id number]
[2021-02-20] MEDS ORDERED: STROKE PATIENT DISCHARGE SCH (14:36)
--- NOTE | 2021-02-20 14:58 | Pharmacy Report ---
Pharmacist Stroke Counseling - Date of Service February 20, 2021 - Scope: Pharmacy has been consulted to provide medication discharge counseling for this patient admitted with [ischemic stroke] [hemorrhagic stroke] [transient ischemic attack] as per the Pharmacist Discharge Counseling for Stroke Patients Elizabeth col. - Medications on Discharge: Home Medications Medication Instructions Recorded Confirmed aspirin 81 mg tablet,delayed 162 mg PO ONCE 02/19/21 02/19/21 release atenolol 25 mg tablet 12.5 mg PO HS 02/19/21 02/19/21 doxazosin 1 mg tablet (Cardura) 0.5 mg PO HS 02/19/21 02/19/21 terbinafine HCl 250 mg tablet 250 mg PO QDD 02/19/21 02/19/21 - Action: The above medications, specifically ones for stroke treatment/prophylaxis, have been reviewed in detail with the patient and/or patient enrollment eligibility representative(s) prior to discharge. This includes indication, common adverse reactions, drug interactions, and medication administration. Medication counseling has been employed using the teach-back method to ensure understanding. - Outcome: The patient and/or patient enrollment eligibility representative(s) have demonstrated understanding of the medications. Additional comments: - Patient reports taking baby ASA in the past. He denies any side effects of adverse events. - I encouraged him to take the enteric coated product. Reviewed s/s of bleeding. Reviewed possible need to hold if dental procedure or surgery is scheduled in the future - encouraged him to discuss with proceduralist in this setting Thank you for allowing pharmacy to be involved in the care of this patient. Please call [phone] with any additional questions
[2021-02-20] MEDS ORDERED: terbinafine HCL 250 MG TAB PO SCH (16:30)
== END 2021-02-20 15:15 | disposition home or self-care (01) ==
LOC: ED 06:35 → EDINP 06:35 → 2E 17:05